=== PATIENT | female | born 1995 | race Caucasian/White ===

== ENCOUNTER 2021-02-01 16:53 | Inpatient (IN) | payer OTHER, SELFPAY ==
[2021-02-01] VITALS (8 sets, daily range): BP systolic 109–116; BP diastolic 61–69; PULSE 83–104; TEMP 36.8–37.3; BMI 25.4
[2021-02-01 17:31] LABS: Basophils Absolute Auto 0.1 K/mm3 (0.0-0.1); Basophils Percent Auto 0.5 % (0.2-1.2); Eosinophils Absolute Auto 0.2 K/mm3 (0-0.3); Eosinophils Percent Auto 1.1 % (0-4.4); Hematocrit 35.7 % (37.0-47.0); Hemoglobin 11.7 g/dL (12.0-15.0); Immature Granulocyte Absolute 0.33 K/mm3 (0.00-0.031); Immature Granulocyte Percent A 2.2 % (0-0.5); Lymphocytes Absolute Auto 2.97 K/mm3 (0.9-3.2); Lymphocytes Percent Auto 19.4 % (18.3-44.2); Mean Corpuscular HGB Conc 32.8 g/dl (32-36); Mean Corpuscular Hemoglobin 27.5 pg (26-34); Mean Platelet Volume 11.2 fl (7.4-10.4); Monocytes Absolute Auto 1.1 K/mm3 (0.1-0.6); Monocytes Percent Auto 7.4 % (2.6-8.5); Neutrophils Absolute Auto 10.7 K/mm3 (1.3-6.7); Neutrophils Percent Auto 69.4 % (45.5-73.1); Platelet Count Result 167 k/mm3 (150-375); Red Blood Count 4.25 M/mm3 (4.2-5.4); Red Cell Distribution Width 14.4 % (11.5-14.5); White Blood Count 15.3 K/mm3 (4.5-10.0)
[2021-02-01] MEDS: DINOPROSTONE 10 MG VAG INSERT VAGINAL (17:44)
--- NOTE | 2021-02-01 17:52 | LDADM ---
This patient, Jessica Galaviz, was admitted to Labor/Delivery/Recovery 107 on 02/01/21 at 16:53. Plans for labor, pain management and were discussed with patient. Patient/family oriented to hospital policies and general routines including ID bracelet, bed and alarms, visiting hours, pain management, procedures, bathroom and other care routines, personal items, smoking policy, room service/diet and guest tray routines, infant security routines, and visiting hours. Patient/Family are encouraged to report perceived risks to care and to ask questions if they do not understand what they are told or what they should do. See OBIX for further documentation.
[2021-02-01] MEDS: ZOLPIDEM TARTRATE (*CRX) 5 MG TABLET PO (23:24)
[2021-02-02] VITALS (73 sets, daily range): BP systolic 81–127; BP diastolic 48–95; PULSE 66–158; RESP 16–18; TEMP 36.2–36.8; O2SAT 97–100
[2021-02-02] MEDS: LACTATED RINGERS 1,000 ML 125 ML IV CONT ×2 (05:14→08:53)
[2021-02-02] MEDS: OXYTOCIN 30 UNITS/NS 500 ML 30 UNITS/500 ML BAG 6 UNITS IV CONT (05:15)
[2021-02-02 08:52] LABS: Rapid Plasma Reagin Non-Reactive (NonReactive)
--- NOTE | 2021-02-02 09:00 | WPDOBADMIT ---
Obstetrics - Admit Note Admission Note: record reviewed. Additions to the history and/or subsequent changes in the physical findings follow. 25 y/o G1 at 39 2/7 weeks gestation admitted to the hospital for induction of labor secondary to oligohydramnios. EFW was also 1st percentile 2 days ago. GBS neg. Cervidil overnight, has been withdrawn. Now comfortable with epidural. AVSS NST reactive TOCO: contractions every 2-5 min ABD soft, nontender, gravid, vertex EXT nontender Cervix 4/80/-2. AROM with clear fluid. A: IUP at term with oligohydramnios. P: Oxytocin. Anticipate .
--- NOTE | 2021-02-02 09:25 | WPDANESEPPF ---
Anes - Initial Pre Proc Eval Procedure: labor epidural Date/Time: 02/02/21 09:25 Surgeon: Kuldeep Isaacs MD Pre Op Diagnosis: labor pain Pre Op Diagnosis: iol Patient Data Age: 25 Gender: F Height: 1.65 m Weight: 69.5 kg Last Vital Signs Temp 36.8 C 02/01/21 23:30 Pulse 93 02/02/21 09:16 BP 109/80 02/02/21 09:16 Pulse Ox 100 02/02/21 09:24 Allergies Allergy/AdvReac Type Severity Reaction Status Date / Time No Known Allergies Allergy Verified 01/17/21 15:39 Home Medications Medication Instructions Recorded Confirmed Type prenat.vits,jovanni,keh-rhct-urnok 1 tablet PO HS 01/17/21 01/17/21 History [ #2] calcium carbonate [Tums] 200 mg PO QID PRN 02/01/21 02/01/21 History famotidine [Pepcid] 20 mg PO DAILY 02/01/21 02/01/21 History Laboratory Tests 02/01/21 02/01/21 02/01/21 17:25 17:25 17:25 WBC 15.3 K/mm3 H K/mm3 (4.5-10.0) RBC 4.25 M/mm3 M/mm3 (4.2-5.4) Hgb 11.7 g/dL L g/dL (12.0-15.0) Hct 35.7 % L % (37.0-47.0) MCV 84.0 fl fl (80-100) MCH 27.5 pg pg (26-34) MCHC 32.8 g/dl g/dl (32-36) RDW 14.4 % % (11.5-14.5) Plt Count 167 k/mm3 k/mm3 (150-375) MPV 11.2 fl H fl (7.4-10.4) Immature Gran % (Auto) 2.2 % H % (0-0.5) Neut % (Auto) 69.4 % % (45.5-73.1) Lymph % (Auto) 19.4 % % (18.3-44.2) [place] % (Auto) 7.4 % % (2.6-8.5) Eos % (Auto) 1.1 % % (0-4.4) Baso % (Auto) 0.5 % % (0.2-1.2) Lymph # (Auto) 2.97 K/mm3 K/mm3 (0.9-3.2) [place] # (Auto) 1.1 K/mm3 H K/mm3 (0.1-0.6) Eos # (Auto) 0.2 K/mm3 K/mm3 (0-0.3) Baso # (Auto) 0.1 K/mm3 K/mm3 (0.0-0.1) Abs Immat Gran (auto) 0.33 K/mm3 H K/mm3 (0.00-0.031) Absolute Neuts (auto) 10.7 K/mm3 H K/mm3 (1.3-6.7) Absolute Nucleated RBC 0.0 K/mm3 K/mm3 (0.0-0.012) Nucleated RBC % 0.0 % % (0.0-0.2) RPR Non-reactive (NonReactive) Blood Type B Positive Antibody Screen Negative Patient hx anesthesia problems: none Family hx anesthesia problems: none [facility] Past Medical History Medical History (Updated 02/02/21 @ 09:26 by Unruly Mendez DO) Anxiety Depression Scoliosis Family History Family History (Updated 01/17/21 @ 15:44 by Jose Navarro RN) Grandparent Diabetes mellitus Bladder cancer Sibling Scoliosis Bipolar 2 disorder Hypothyroidism Mother Mental disorder Father High cholesterol Social History Social History Smoking status: Never smoker Substance use: never Spiritual care concerns: No Anes - Eval Final PreProcedure Day of Procedure 02/02/21 09:25 Patient weight: overweight Heart: regular rate and rhythm Lungs: clear to auscultation and normal air movement Airway: Mallampati scale class II Neurological: alert and oriented Last oral intake: >/= 8 hours ASA classification: II Emergent: no Anesthetic plan: proceed Anesthesia type and monitoring: regional epidural and standard monitoring Informed Consent: The patient's anesthetic plan and its attendant risks and benefits were discussed with the patient/family/POA. Questions were solicited and answers provided to the satisfaction of the patient/family/POA.
[2021-02-02] MEDS: OXYTOCIN 30 UNITS/NS 500 ML 30 UNITS/500 ML BAG 125 UNITS IV CONT (12:12)
--- NOTE | 2021-02-02 13:04 | PM.OBPRVD ---
OB - Delivery Note Procedure Delivery date: 02/02/21 Procedure: Induction of labor with Induction method: AROM and per pitocin protocol Delivery monitor: external FHT, external uterine and internal uterine Route of delivery: Laceration Description: Perineal - 2nd Degree Delivery repair: vicryl (3-0) Specimen: Yes (cord blood, placenta) Quantitative Blood Loss (ml): 140 Anesthesia type: Epidural Disposition: PACU Complications: None Narrative: 25 y/o G1 at 39 2/7 weeks gestation who presented to the hospital for induction of labor. Cervidil was placed overnight, then withdrawn the following morning. Oxytocin was administered intravenously. Amniotomy was performed with return of clear fluid. She received an epidural for pain control. Her labor progressed and her cervix dilated completely. She pushed with good effort and delivered the infant's head to the perineum, followed by the body. The nose and mouth were bulb suctioned. After a delay, the cord was clamped and cut. The was handed off the field. Cord blood was collected. The placenta delivered spontaneously and was grossly normal in appearance. The usual 3 vessel cord was noted. A second degree midline perineal laceration was sustained. This was reapproximated using 3 0 Vicryl in the usual layered fashion. Excellent hemostasis resulted as did excellent reapproximation of the normal anatomy. Needle and instrument counts were correct. The patient was taken to recovery room in stable condition. The infant went to the nursery in stable condition. I was present and scrubbed for the entire delivery. Baby Date of : 02/02/21 Time of : 11:46 Weeks of gestation at delivery: 39 Infant gender: Male Weight (pounds): 6 Weight (ounces): 3 presentation: vertex position: Left Occiput Anterior Placenta delivery description: Spontaneous and Normal Configuration cord vessel description: 3 Vessels and Delayed Cord Clamping score one minute: 9 score five minutes: 9
[2021-02-02] MEDS: WITCH HAZEL 40 PADS 1 PAD TOPICAL (14:40)
[2021-02-02] MEDS: BENZOCAINE 20% AER SPR (*SP) 56 GM CAN 1 SPRAY TOPICAL (14:40)
[2021-02-02] MEDS: IBUPROFEN 600 MG TABLET PO ×2 (14:40→20:04)
--- NOTE | 2021-02-02 15:50 | PC.NURSE ---
Mother called out for assist with feeding, reporting infant was eager first feeding and now sleepy. Assured parents this is normal. Demonstrated stimulation techniques to wake infant for feeding, feeding cues noted. Infant is able to freely thrust tongue past gum ridge and flange both lips. Skin is intact on both nipples, no redness and bruising noted. Reviewed feeding cues, frequencies, duration of feedings, feeding elimination flow sheet, and signs of adequate intake. Assisted with infant to breast. Reviewed positioning/alignment in cross cradle, holding breast in ?U? hold and guided asymmetrical latch on. Reviewed rational for each. able to latch correctly within a few attempts. Infant held nipple in his mouth with some tongue thrusting. Several attempts made. Suggeted mother skin to skin for 15-20 minutes and call out for assist.
[2021-02-02] MEDS: ACETAMINOPHEN 325 MG TABLET 650 MG PO (23:15)
[2021-02-03] MEDS: IBUPROFEN 600 MG TABLET PO ×3 (03:32→21:18)
[2021-02-03 03:40] VITALS: BP 108/62; PULSE 72; RESP 16; TEMP 36.3; O2SAT 97
[2021-02-03 04:44] LABS: Hematocrit 31.8 % (37.0-47.0); Hemoglobin 10.1 g/dL (12.0-15.0)
[2021-02-03] MEDS: ACETAMINOPHEN 325 MG TABLET 650 MG PO ×2 (06:51→21:18)
[2021-02-03] MEDS: MULTIVIT/MIN/PREN/FOL AC/IRON TABLET 1 TAB PO (06:51)
[2021-02-03] MEDS: DOCUSATE SODIUM 100 MG CAPSULE PO (06:51)
[2021-02-03 07:00] VITALS: BP 114/70; PULSE 70; PULSE 72; RESP 14; RESP 16; TEMP 36.6; O2SAT 100; O2SAT 97
--- NOTE | 2021-02-03 09:00 | WPDANLDPN2 ---
Anes-Prog Note L&D Date/Time: 02/03/21 09:00 Comfortable throughout: labor and delivery Neuraxial method: epidural Epidural/Spinal procedure site: clean & non-tender Neuro status: Neuro function grossly intact. Cardiovascular status: normal Respiratory status: normal Airway patency: baseline Mental status: baseline Post-Op hydration status: normal Vital Signs: Last Vital Signs Temp 97.9 F 02/03/21 07:00 Pulse 70 02/03/21 07:00 Resp 14 02/03/21 07:00 BP 114/70 02/03/21 07:00 Pulse Ox 100 02/03/21 07:00 Pain score (VAS): 0 Post-procedural complaints: none Patient feedback: Patient satisfied with anesthetic care.
--- NOTE | 2021-02-03 10:26 | PM.OBPNVD ---
OB - PN: Subj Subjective Date/time seen: 02/03/21 10:26 Narrative: Pain OK. Would like circumcision for son. OB - PN: Obj Data Labs CBC & Chem 7: 02/03/21 03:38 Labs: Laboratory Results - last 24 hr 02/03/21 03:38 Hgb 10.1 L Hct 31.8 L OB - PN A/P Plan Comments: A: PPD#1, doing well. P: Routine care. Reviewed circ. Exam Psych: Other: AVSS ABD soft, nontender, fundus firm EXT nontender
--- NOTE | 2021-02-03 10:27 | PM.OBDSVD ---
DS: Admitting Diagnosis Discharge Date 02/04/21 Admitting Diagnosis IUP at 39 weeks Oligohydramnios DS: Discharge Diagnosis Discharge Diagnosis (1) (normal spontaneous vaginal delivery): Code(s): O80 - Encounter for full-term uncomplicated delivery Status: Acute OB - DS: Summary OB Procedures : None OB Procedures Intrapartum: Spontaneous Vag Delivery OB Procedures: : None DS: Data Data Completed and Pending Labs on day of discharge: Labs from last 24 hours 02/03/21 03:38 Hgb 10.1 L Hct 31.8 L Discharge Plan Discharge Attending physician on discharge: Kuldeep Isaacs Discharging Clinician: Kuldeep Isaacs Patient Disposition: Home, Self-Care Activity: pelvic rest Diet: regular Discharge Instructions: Call or return if temperature above 100.4? F, increased abdominal pain, increased vaginal bleeding or any new problems. Stand Alone Forms: General Discharge Information Follow-up/Referrals: Kuldeep Isaacs MD [Physician] - 6 Weeks Discharge Medications: New ibuprofen 600 mg tablet 600 mg PO Q6H PRN (Reason: cramps) Qty: 30 RF: 0 methylprednisolone [Medrol (Jordan)] 4 mg tablets,dose pack See Rx Instructions .ROUTE .COMPLEX Qty: 21 RF: 0 No Action #2 Tablet 1 tablet PO HS RF: 0 famotidine [Pepcid] 20 mg Tablet 20 mg PO DAILY RF: 0 calcium carbonate [Tums] 200 mg calcium (500 mg) Tablet,Chewable 200 mg PO QID PRN (Reason: Heartburn) RF: 0 Date of admission: 02/01/21 16:53 Primary Care Provider: Whitney,Linda Weller Admitting Provider: Kuldeep Isaacs Attending physician on admission: Kuldeep Isaacs Condition: Stable
[2021-02-03] MEDS: TRIAMCINOLONE ACET 0.1% CREAM 15 GM TUBE 1 APPLIC TOPICAL (12:17)
[2021-02-03 18:45] VITALS: BP 125/75; PULSE 70; RESP 18; TEMP 36.5
[2021-02-03] MEDS: LANOLIN (LANSINOH) 7.5 GM CREAM 1 APPLIC TOPICAL (19:07)
[2021-02-04] MEDS: MULTIVIT/MIN/PREN/FOL AC/IRON TABLET 1 TAB PO (07:48)
[2021-02-04] MEDS: IBUPROFEN 600 MG TABLET PO (07:48)
[2021-02-04] MEDS: DOCUSATE SODIUM 100 MG CAPSULE PO (07:48)
[2021-02-04 07:50] VITALS: BP 116/73; PULSE 74; RESP 18; TEMP 36.8
--- NOTE | 2021-02-04 09:04 | PM.OBPNVD ---
OB - PN: Subj Subjective Date/time seen: 02/04/21 09:04 Narrative: Pain OK. Rash on buttocks, dorsal hands, arms is itchy and seems worse despite TAC 0.1% cream. Would like to go home. OB - PN: Obj Data Labs CBC & Chem 7: 02/03/21 03:38 OB - PN A/P Plan Comments: A: PPD#2, doing well. Dermatitis. P: Medrol dosepack. Home to f/u 6 weeks. Exam Psych: Other: AVSS ABD soft, nontender, fundus firm EXT nontender
--- NOTE | 2021-02-04 11:35 | PC.NURSE ---
Patient viewed the discharge video Mother & Baby Care, The First Two Weeks . Patient was given the opportunity and encouraged to ask questions. Patient verbalized understanding of information shared and has been given the mother/baby guide for home reference.
[2021-02-07 10:14] VITALS: BP 96/60; PULSE 105; RESP 20; TEMP 36.9; O2SAT 100
== END 2021-02-04 14:16 | disposition home or self-care (01) | DRG 807 ==
LOC: ANHLDR 16:58 → ANHOB2 02-02 15:35
PROVIDERS: Admitting Provider Obstetrics & Gynecology; PCP Physician Assistant; Visit Provider Obstetrics & Gynecology
DX: O41.03X0 Oligohydramnios, third trimester, not applicable or unspecified (principal); Z37.0 Single live birth; Z3A.39 39 weeks gestation of pregnancy; O62.3 Precipitate labor; O70.1 Second degree perineal laceration during delivery; O99.344 Other mental disorders complicating childbirth; F41.9 Anxiety disorder, unspecified; F32.9 Major depressive disorder, single episode, unspecified; O99.892 Other specified diseases and conditions complicating childbirth; M41.9 Scoliosis, unspecified; O99.73 Diseases of the skin and subcutaneous tissue complicating the puerperium; R21 Rash and other nonspecific skin eruption
CPT/HCPCS: 36415; 85014; 85018; 85025; 86592; 86850; 86900; 86901; A9270; J2590; J2795; J7120

== ENCOUNTER 2023-08-19 11:03 | Outpatient (RCR) | payer OTHER, SELFPAY ==
[2023-08-19 12:15] VITALS: BP 113/62; PULSE 76
== END 2023-11-17 23:59 | disposition home or self-care (01) ==
LOC: ANHOBOP 11:03
PROVIDERS: PCP Physician Assistant; Visit Provider Obstetrics & Gynecology
DX: O36.8130 Decreased fetal movements, third trimester, not applicable or unspecified (principal); Z3A.39 39 weeks gestation of pregnancy
CPT/HCPCS: 59025

== ENCOUNTER 2023-08-24 03:20 | Inpatient (IN) | payer OTHER, SELFPAY ==
[2023-08-24] VITALS (94 sets, daily range): BP systolic 83–189; BP diastolic 41–164; PULSE 72–144; RESP 16–18; TEMP 36.9–37.4; O2SAT 93–100; BMI 26.6
[2023-08-24] MEDS: LACTATED RINGERS 1,000 ML 125 ML IV CONT ×3 (04:00→05:57)
[2023-08-24 04:07] LABS: Basophils Absolute Auto 0.1 K/mm3 (0.0-0.1); Basophils Percent Auto 0.4 % (0.2-1.2); Eosinophils Absolute Auto 0.3 K/mm3 (0-0.3); Hematocrit 31.9 % (37.0-47.0); Hemoglobin 9.9 g/dL (12.0-15.0); Immature Granulocyte Absolute 0.17 K/mm3 (0.00-0.031); Immature Granulocyte Percent A 1.3 % (0-0.5); Lymphocytes Absolute Auto 3.03 K/mm3 (0.9-3.2); Lymphocytes Percent Auto 23.5 % (18.3-44.2); Mean Corpuscular Hemoglobin 23.7 pg (26-34); Mean Corpuscular Volume 76.3 fl (80-100); Mean Platelet Volume 10.7 fl (7.4-10.4); Monocytes Absolute Auto 1.2 K/mm3 (0.1-0.6); Monocytes Percent Auto 9.2 % (2.6-8.5); Neutrophils Absolute Auto 8.2 K/mm3 (1.3-6.7); Neutrophils Percent Auto 63.6 % (45.5-73.1); Platelet Count Result 220 k/mm3 (150-375); Red Blood Count 4.18 M/mm3 (4.2-5.4); Red Cell Distribution Width 15.8 % (11.5-14.5); White Blood Count 12.9 K/mm3 (4.5-10.0)
--- NOTE | 2023-08-24 04:27 | P.PNAN_ITS ---
Anes - Eval Pre Procedure Procedure: labor epidural Date/Time: 08/24/23 04:27 Surgeon: davey Preop Diagnosis: pain during labor Pre Op Diagnosis: Labor Patient Data Age: 28 Gender: F Height: Weight: Last Vital Signs Pulse 108 H 08/24/23 04:15 BP 133/84 08/24/23 04:15 Pulse Ox 100 08/24/23 04:25 Allergies Allergy/AdvReac Type Severity Reaction Status Date / Time No Known Allergies Allergy Verified 01/17/21 15:39 Home Medications Medication Instructions Recorded Confirmed Type prenat.vits,jovanni,vtc-fjok-qoukm 1 tablet PO HS 01/17/21 01/17/21 History cholecalciferol (vitamin D3) 25 1 spray sublingual DAILY 08/11/23 08/11/23 History mcg/spray(1,000 unit/spray) subling spray, susp cyanocobalamin (vitamin B-12) 08/11/23 History 1,000 mcg/mL oral drops (Vitamin B-12) Laboratory Tests 08/24/23 04:02 WBC 12.9 H K/mm3 (4.5-10.0) RBC 4.18 L M/mm3 (4.2-5.4) Hgb 9.9 L g/dL (12.0-15.0) Hct 31.9 L % (37.0-47.0) MCV 76.3 L fl (80-100) MCH 23.7 L pg (26-34) MCHC 31.0 L g/dl (32-36) RDW 15.8 H % (11.5-14.5) Plt Count 220 k/mm3 (150-375) MPV 10.7 H fl (7.4-10.4) Immature Gran % (Auto) 1.3 H % (0-0.5) Neut % (Auto) 63.6 % (45.5-73.1) Lymph % (Auto) 23.5 % (18.3-44.2) [place] % (Auto) 9.2 H % (2.6-8.5) Eos % (Auto) 2.0 % (0-4.4) Baso % (Auto) 0.4 % (0.2-1.2) Lymph # (Auto) 3.03 K/mm3 (0.9-3.2) [place] # (Auto) 1.2 H K/mm3 (0.1-0.6) Eos # (Auto) 0.3 K/mm3 (0-0.3) Baso # (Auto) 0.1 K/mm3 (0.0-0.1) Abs Immat Gran (auto) 0.17 H K/mm3 (0.00-0.031) Absolute Neuts (auto) 8.2 H K/mm3 (1.3-6.7) Absolute Nucleated RBC 0.000 K/mm3 (0.0-0.012) Nucleated RBC % 0.0 % (0.0-0.2) RPR Pending Patient hx anesthesia problems: none Family hx anesthesia problems: none Results Review: All pre-operative results and documents have been reviewed as part of the pre- operative evaluation. [facility] Past Medical History Medical History (Updated 02/03/21 @ 10:27 by Kuldeep Isaacs MD) Anxiety Depression Scoliosis Family History Family History Grandparent Diabetes mellitus Bladder cancer Sibling Scoliosis Bipolar 2 disorder Hypothyroidism Mother Mental disorder Father High cholesterol Social History Social History Smoking status: Never smoker Substance use: never Spiritual care concerns: No Exam Day of Procedure 08/24/23 04:27
--- NOTE | 2023-08-24 04:53 | LDADM ---
This patient, Jessica Galaviz, was admitted to Labor/Delivery/Recovery 106 on 08/24/23 at 03:20. Plans for labor, pain management and were discussed with patient. Patient/family oriented to hospital policies and general routines including ID bracelet, bed and alarms, visiting hours, pain management, procedures, bathroom and other care routines, personal items, smoking policy, room service/diet and guest tray routines, infant security routines, and visiting hours. Patient/Family are encouraged to report perceived risks to care and to ask questions if they do not understand what they are told or what they should do. See OBIX for further documentation.
--- NOTE | 2023-08-24 07:23 | PM.IMHP ---
H&P: HPI History of Present Illness Date/Time: 08/24/23 07:23 Chief Complaint: Labor at term Narrative: 28-year-old 2 para 1 whose last menstrual period was 11/19/2022, EDC is 08/26/2023, confirmed by her early ultrasound presents at 39 weeks gestation in active labor. This has been uncomplicated. She did have a history of overall hydramnios with her last . She is negative for group B strep PMFSH Past Medical History Medical History Anxiety Depression Scoliosis Family History Family History Grandparent Diabetes mellitus Bladder cancer Sibling Scoliosis Bipolar 2 disorder Hypothyroidism Mother Mental disorder Father High cholesterol Social History Social History Smoking status: Never smoker Substance use: never Do You Feel Safe in your Home?: Yes Lack of Transportation: No Lack of Food: Never True Current Housing: I Have Housing Concerned About Future Housing: No Difficulty Paying Gas/Electric Bills: No Difficulty Paying for Meds: No Currently Unemployed: No Education: Decline to Answer Difficulty w/ Childcare or Family Care: No Spiritual care concerns: No Meds Home Medications and Allergies Home Medications Medication Instructions Recorded Confirmed Type prenat.vits,jovanni,aua-czev-koxwu 1 tablet PO HS 01/17/21 08/24/23 History cholecalciferol (vitamin D3) 25 1 spray sublingual DAILY 08/11/23 08/11/23 History mcg/spray(1,000 unit/spray) subling spray, susp cyanocobalamin (vitamin B-12) 08/11/23 History 1,000 mcg/mL oral drops (Vitamin B-12) Allergies Allergy/AdvReac Type Severity Reaction Status Date / Time No Known Allergies Allergy Verified 08/24/23 06:58 Vital Signs Vital Signs - 24 hr 08/24/23 04:14 08/24/23 04:15 08/24/23 04:20 Temperature Pulse Rate 89 108 H Blood Pressure 127/78 133/84 Pulse Oximetry 99 Oxygen Delivery 08/24/23 04:25 08/24/23 04:28 08/24/23 04:30 Temperature Pulse Rate 126 H Blood Pressure 143/81 H Pulse Oximetry 100 98 Oxygen Delivery 08/24/23 04:31 08/24/23 04:33 08/24/23 04:36 Temperature Pulse Rate 125 H 117 H 107 H Blood Pressure 148/90 H 147/67 H 123/60 Pulse Oximetry 98 Oxygen Delivery 08/24/23 04:38 08/24/23 04:40 08/24/23 04:40 Temperature Pulse Rate 112 H Blood Pressure 118/73 Pulse Oximetry 95 94 93 Oxygen Delivery 08/24/23 04:40 08/24/23 04:40 08/24/23 04:44 Temperature Pulse Rate 95 91 Blood Pressure 129/65 136/69 Pulse Oximetry Oxygen Delivery 08/24/23 04:45 08/24/23 04:48 08/24/23 04:50 Temperature Pulse Rate 96 102 H 94 Blood Pressure 131/80 120/62 127/65 Pulse Oximetry 98 98 Oxygen Delivery 08/24/23 04:53 08/24/23 04:55 08/24/23 04:58 Temperature Pulse Rate 102 H 112 H 94 Blood Pressure 126/70 133/70 118/70 Pulse Oximetry 99 Oxygen Delivery 08/24/23 05:00 08/24/23 05:03 08/24/23 05:05 Temperature Pulse Rate 105 H 118 H Blood Pressure 137/58 L 120/68 Pulse Oximetry 99 99 Oxygen Delivery 08/24/23 05:06 08/24/23 05:08 08/24/23 05:10 Temperature Pulse Rate 121 H 105 H Blood Pressure 140/56 L 134/66 Pulse Oximetry 99 Oxygen Delivery 08/24/23 05:11 08/24/23 05:13 08/24/23 05:15 Temperature Pulse Rate 95 94 105 H Blood Pressure 130/65 103/79 130/71 Pulse Oximetry 100 Oxygen Delivery 08/24/23 05:18 08/24/23 05:20 08/24/23 05:21 Temperature Pulse Rate 99 109 H Blood Pressure 133/66 133/56 L Pulse Oximetry 98 Oxygen Delivery 08/24/23 05:23 08/24/23 05:25 08/24/23 05:30 Temperature Pulse Rate 100 105 H Blood Pressure 125/71 130/115 H Pulse Oximetry 99 98 Oxygen Delivery 08/24/23 05:31 08/24/23 05:32 0
[2023-08-24] MEDS: OXYTOCIN 30 UNITS/NS 500 ML 30 UNITS/500 ML BAG 999 UNITS IV CONT (08:30)
--- NOTE | 2023-08-24 08:41 | PM.OBPRVD ---
OB - Vaginal Delivery Note Procedure Delivery date: 08/24/23 Delivery monitor: External FHT and External Uterine Route of delivery: Episiotomy description: None Laceration Description: Perineal - 1st Degree Delivery repair: vicryl Specimen: No Quantitative Blood Loss (ml): 61 Anesthesia type: Epidural Disposition: Floor Complications: No immediate complications Baby Date of : 08/24/23 Time of : 08:28 Weeks of gestation at delivery: 39 gender: Male presentation: vertex position: Right Occiput Anterior Placenta delivery description: Spontaneous Cord Vessel Description: 3 Vessels score one minute: 9 score five minutes: 9
[2023-08-24] MEDS: OXYTOCIN 30 UNITS/NS 500 ML 30 UNITS/500 ML BAG 125 UNITS IV CONT (09:05)
--- NOTE | 2023-08-24 11:15 | OBPPTRN ---
Patient transferred to post room #284 via wheelchair. Support person present. Oriented to unit, room, information board, rooming in, admission packet and security measures. Patient verbalizes understanding.
[2023-08-24] MEDS: IBUPROFEN 600 MG TABLET PO ×2 (14:20→20:02)
[2023-08-24] MEDS: DOCUSATE SODIUM 100 MG CAPSULE PO (16:32)
[2023-08-24] MEDS: CEPHALEXIN 500 MG CAPSULE PO (16:32)
[2023-08-24] MEDS: POLYSACCHARIDE IRON COMPLEX 150 MG CAPSULE PO (16:32)
[2023-08-25 05:14] LABS: Hematocrit 29.1 % (37.0-47.0); Hemoglobin 8.8 g/dL (12.0-15.0)
--- NOTE | 2023-08-25 07:23 | WPDANLDPN2 ---
Anes-Prog Note L&D Date/Time: 08/25/23 07:23 Comfortable throughout: labor and delivery Neuraxial method: epidural Epidural/Spinal procedure site: clean & non-tender Neuro status: Neuro function grossly intact. Cardiovascular status: normal Respiratory status: normal Airway patency: baseline Mental status: baseline Post-Op hydration status: normal Vital Signs: Last Vital Signs Temp 99.3 F 08/24/23 20:00 Pulse 74 08/24/23 20:00 Resp 16 08/24/23 20:00 BP 113/74 08/24/23 20:00 Pulse Ox 97 08/24/23 20:00 O2 Del Method Room Air 08/24/23 11:30 Pain score (VAS): 0/10 I/O: Intake & Output 08/24/23 08/24/23 08/25/23 15:59 23:59 07:59 Intake Total 540 Output Total 61 Balance 479 Post-procedural complaints: none Patient feedback: Patient satisfied with anesthetic care.
[2023-08-25 07:40] VITALS: BP 111/74; PULSE 85; RESP 16; TEMP 37.6; O2SAT 98
[2023-08-25] MEDS: DOCUSATE SODIUM 100 MG CAPSULE PO (08:23)
[2023-08-25] MEDS: POLYSACCHARIDE IRON COMPLEX 150 MG CAPSULE PO (08:23)
[2023-08-25] MEDS: IBUPROFEN 600 MG TABLET PO (08:24)
[2023-08-25] MEDS: CEPHALEXIN 500 MG CAPSULE PO (08:24)
[2023-08-25] MEDS: LANOLIN (LANSINOH) 7.5 GM CREAM 1 APPLIC TOPICAL (08:24)
[2023-08-25] MEDS: MULTIVIT/MIN/PREN/FOL AC/IRON TABLET 1 TAB PO (08:24)
--- NOTE | 2023-08-25 10:49 | PC.NURSE ---
0945 Introductions were made, then consulted with patient to assess needs related to . Mother led the conversation with her?plans to feed?her and the?experience so far. Encouraged understanding of the benefits of skin to skin (demonstrating unwrapping infant and placing upright on her chest), stimulating with massage touch, changing positions to encourage wakefulness, how to watch for early feeding cues, responsive feeding, feeding on demand (aiming for 8-12 times in 24 hours, about every 2-3 hours), milk production, building/maintaining a milk supply, duration of feeding, signs of adequate intake/output and how to record on the feeding sheet. Mother works well with her with encouragement and education. Reviewed positioning and ear, shoulder, hip alignment, supporting the breast to facilitate a deep latch, asymmetrical latch (off-center), leading with the chin with a big, open, wide gape and body close to mother. Infant latched optimally to the right breast in cross cradle position. Education given to the mother of how to visualize the suckling (with good rocking jaw motion), swallows (dropping of the lower jaw) and how to listen for drinking at the breast (the ka sound). Infant was able to maintain latch without pain to mother protecting the nipple with optimal positioning and latching, however baby is very sleepy at this time. Will attempt to feed baby in one hour. Reviewed comfort measures of healing with a warm, wet washcloth to rinse breast, then leave open to air-dry, good handwashing when or touching the breast/nipples to prevent infection. Mother voiced understanding of skin to skin, stimulating with massage touch, responsive feedings, hand expressed colostrum, talking to to encourage if it has been 2 -2.5 hours since the start of the last , to call if does not latch, or if there is discomfort with . Resources used for education were facilitated with the mom and baby guide, Inpatient resources provided with business card, feeding sheet, name written on the communication board, and the mom/baby guide. Parents voiced understanding of information, demonstrated learning and will call if there is a request for assistance. Reported to the Primary RN.
--- NOTE | 2023-08-25 11:51 | PM.OBPNVD ---
OB - PN: Subj Subjective Date/time seen: 08/25/23 11:51 Narrative: Pain OK. Desires circumcision for son. Would like to go home. OB - PN: Obj Data Labs 08/25/23 05:00 Labs: Laboratory Results - last 24 hr 08/25/23 05:00 Hgb 8.8 L Hct 29.1 L OB - PN A/P Plan Comments: A: PPD#1, doing well. P: Reviewed circ. Home to f/u 6 weeks. Exam Psych: Other: AVSS ABD soft, nontender, fundus firm EXT nontender
--- NOTE | 2023-08-25 11:53 | P.DS_ITS ---
DS: Admitting Diagnosis Discharge Date 08/25/23 Admitting Diagnosis IUP at term Labor DS: Discharge Diagnosis Discharge Diagnosis (1) (normal spontaneous vaginal delivery): Code(s): O80 - Encounter for full-term uncomplicated delivery Status: Acute OB - DS: Summary OB Procedures : None OB Procedures Intrapartum: Spontaneous Vag Delivery OB Procedures: : None Peripartum Data Laceration Description: Perineal - 1st Degree Episiotomy description: None Time Spent with Patient Time attestation: Total time spent providing and/or coordinating discharge services: DS: Data Data Completed and Pending Labs on day of discharge: Labs from last 24 hours 08/25/23 05:00 Hgb 8.8 L Hct 29.1 L Discharge Plan Discharge Attending physician on discharge: Kuldeep Isaacs Discharging Clinician: Kuldeep Isaacs Patient Disposition: Home, Self-Care Activity: pelvic rest Diet: regular Discharge Instructions: Call or return if temperature above 100.4? F, increased abdominal pain, incre ased vaginal bleeding or any new problems. Stand Alone Forms: General Discharge Information Follow-up/Referrals: Kuldeep Isaacs MD [Physician] - 6 Weeks Discharge Medications: New ibuprofen 600 mg tablet 600 mg PO Q6H PRN (Reason: cramps) Qty: 30 0RF Continued cholecalciferol (vitamin D3) 25 mcg/spray 1,000unit/spray [place],Suspension 1 spray SUBLINGUAL DAILY Vitamin B-12 1,000 mcg/mL Drops Rx Instructions: Pt states does 5 sprays daily prenat.vits,jovanni,yxt-fana-keysm Tablet 1 tablet PO HS Date of admission: 08/24/23 03:20 Primary Care Provider: WhitneyLinda Admitting Provider: Kuldeep Isaacs Attending physician on admission: Kuldeep Isaacs Condition: Stable
--- NOTE | 2023-08-25 12:08 | PC.NURSE ---
1145 Mother works well with her infant. Reviewed positioning and ear, shoulder, hip alignment, supporting the breast to facilitate a deep latch, asymmetrical latch (off-center), leading with the chin with a big, open, wide gape and body close to mother. Infant latched optimally to the both breasts in cross cradle position. Infant was able to maintain latch without pain to mother protecting the nipple with optimal positioning and latching. Reviewed comfort measures of healing with a warm, wet washcloth to rinse breast, then leave open to air-dry, good handwashing when or touching the breast/nipples to prevent infection. Parents voiced understanding of information and will call if there is a request for assistance. Reported to the Primary RN.
--- NOTE | 2023-08-25 13:40 | PC.NURSE ---
Patient instructed on viewing the discharge video Mother & Baby Care, The First Two Weeks . Patient was given the opportunity and encouraged to ask questions. Patient verbalized understanding of information shared and has been given the mother/baby guide for home reference.
[2023-08-25 15:10] LABS: Rapid Plasma Reagin Non-Reactive (NonReactive)
[2023-08-26 15:55] VITALS: BP 123/69; PULSE 86; RESP 18; TEMP 36.7; O2SAT 100
== END 2023-08-25 16:45 | disposition home or self-care (01) | DRG 807 ==
LOC: ANHLDR 05:54 → ANHOB2 13:28
PROVIDERS: Admitting Provider Obstetrics & Gynecology; PCP Physician Assistant; Visit Provider Obstetrics & Gynecology
DX: O70.0 First degree perineal laceration during delivery (principal); Z37.0 Single live birth; Z3A.39 39 weeks gestation of pregnancy
CPT/HCPCS: 36415; 85014; 85018; 85025; 86592; 86850; 86900; 86901; A9270; J2590; J2795; J7120

== ENCOUNTER 2025-05-10 16:55 | Emergency (ER) | payer OTHER, SELFPAY ==
--- NOTE | ~2025-05-10 | XR_ITS ---
XR foot LT min 3V 05/10/2025 20:21 INDICATION: Foreign body PROCEDURE: 3 views left foot COMPARISON: No prior studies for comparison. FINDINGS: Fracture, dislocation or subluxation is not identified. The soft tissues appear within normal limits. No foreign bodies are identified. IMPRESSION: 1: NO ACUTE BONE OR JOINT ABNORMALITY IDENTIFIED. Reviewed, dictated and finalized at location O. INE FURNACE LOADER
--- OUTSIDE RECORDS SUMMARY | 2025-05-10 16:57 | XMS_ITS | Clinical Summary ---
Author Organization [facility] Address [address], [address] [address] Phone Care Team Providers Care Yard Engineer Name Role Phone Linda Olson Primary Care Provider + Provider, None Unavailable Unavailable Allergies No known active allergies Medications No known medications Active Problems No known active problems Immunizations Immunization Administration Dates Next Due DTAP VACCINE 06/05/2000 DTAP/HIB COMBINED VACCINE 07/26/1996,1995, 1995 DTP-Hib 1995 Hepatitis B Vaccine, Pediatric/adolescent 1995,1995,1995 Inactivated Polio Vaccine 06/05/2000 MMR Vaccine 06/05/2000,04/26/1996 OPV 1995,1995,1995 TDAP Vaccine 02/19/2010 Family History Medical History Relation Name Comments Depression Sister 1 Thyroid Disease Sister 2 Relation Name Status Comments Father Alive Mother Alive Sister 1 Alive Sister 2 Alive Social History Tobacco Use Types Packs/Day Years Used Date Smoking Tobacco: Never Smokeless Tobacco: Never Tobacco Cessation:Counseling Given: No Alcohol Use Standard Drinks/Week Comments Not Currently 0 (1 standard drink = 0.6 oz pur e alcohol) PHQ-2 Answer Date Recorded Total Score - Questions 1-9 0 10/18 Education Answer Date Recorded What is the highest level of school you have completed or the highest degree you have received? 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 Oxygen Saturation 100% 11/13/2022 2:16 PM CDT Inhaled Oxygen Concentration - - Weight 56.7 kg (125 lb) 11/13/2022 2:16 PM CDT Height 165.1 cm (5' 5) 11/13/2022 2:16 PM CDT Body Mass Index 20.8 11/13/2022 2:16 PM CDT Plan of Treatment Health Maintenance Due Date Last Done Comments Hepatitis C Virus (HCV) Screening 1995 Varicella Immunization (1 of 2 - 13+ 2-dose series) 2008 DTaP/Tdap/Td Immunization (7 - Td or Tdap) 02/20/2020 02/19/2010, 06/05/2000, 07/26/1996, Additional history exists Td Immunization Every 10 Years (Adults With 1 Tdap) 02/20/2020 02/19/2010 Pap Smear 10/03/2024 10/03/2021 Influenza Immunization (#1) 2025 SARS-COV-2 Immunization ( season) 2025 Cervical Cancer Screening (CCS) 2025 HPV/Cotest 2025 Respiratory Syncytial Virus (RSV) Immunization (Adult) (1 - 1-dose 75+ series) 2070 Hepatitis B Immunization Completed 996, 1995, 1995 Human Papillomavirus (HPV) Immunization (No Doses Required) Completed Meningococcal Immunization (ACWY) Aged Out No longer eligible based on patient's age to complete this topic Pneumococcal Immunization Combined Aged Out No longer eligible based on patient's age to complete this topic Rotavirus Immunization Aged Out No lo nger eligible based on patient's age to complete this topic Insurance [facility] Care Teams Yard Engineer Relationship Specialty Start Date End Date Linda Olson PAC [address] [facility] [address] PCP - General Physician Armored Car Driver 11/08/19 Provider, None [place] 11/08/19
--- OUTSIDE RECORDS SUMMARY | 2025-05-10 16:57 | XMS_ITS | Clinical Summary ---
Author Organization [facility] [address] Address [address] [place] [address] Phone Care Team Providers Care Charge Master Analyst Name Role Phone Linda Olson Primary Care Provider [phone] Allergies No known active allergies Medications biotin 1 mg capsule Take by mouth. Active norethindrone-ethi n estradiol (NECON , 28,) 1-35 mg-mcg per tabletIndications: Oral contraceptive pill surveillance Take 1 tablet by mouth daily 28 tablet 14 02/15/201 9 Active Active Problems Problem Noted Date Diagnosed Date Cyst of ovary 02/24/2013 Overview (08/23/2016): Ovarian cyst Medical examinations/reports status 04/15/2012 Overview (08/21/2016): Health care maintenance Immunizations Immunization Administration Dates Next Due DTP / HiB 1995 DTaP 06/05/2000 DTaP / HiB 07/26/1996,1995,1995 Hep B, Adolescent or Pediatric 1995,1995,1995 IPV 06/05/2000 MMR 06/05/2000,04/26/1996 OPV 1995,1995,1995 Tdap 02/19/2010 Surgical History Surgery Date Site/Laterality Comments OTHER SURGICAL HISTORY 7-4 product normal : Vaginal delivery OTHER SURGICAL HISTORY Lac R median and ulnar nerves - through glass door: SX [facility] 2003 - surgery x 3 -'00, ', 02 ARM SURGERY Right Medical History Medical History Date Comments Hx Other Medical 1994 7-4 product nor mal Hx Other Medical 1999 Lac R median an d ulnar nerves - through glass door Family History Medical History Relation Name Comments Asthma Other 1 Family history of Asthma; Leukemia Other 2 Family history of Leukemia; Thyroid disease Other 3 Family histo ry of Thyroid disease; Allergies Other 4 Family history of Allergies; Migraines Other 5 Family history of Migraines; Stroke Other 6 Family history of Stroke; Hypertension Other 7 Family history of Hypertension; RED 09/23/2014 -MGF Diabetes Other 8 Family history of Diabetes mellitus; RED 09/23/2014 -MGM, PGM Relation Name Status Comments Other 1 Other 2 Other 3 Other 4 Other 5 Other 6 Other 7 Other 8 Social History Tobacco Use Types Packs/Day Years Used Date Smoking Tobacco: Never Smokeless Tobacco: Never Tobacco Cessation:Counseling Given: Yes Alcohol Use Standard Drinks/Week Comments No 0 (1 standard drink = 0.6 oz pur e alcohol) Comments No Sex and Gender Information Value Date Recorded Sex Assigned at Not on file Legal Sex Female 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 Gender Identity Not on file Sexual Orientation Not on file 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 Not on file Not on file Not on file Obstetrics History Para Term AB IAB SAB Ectopic Multiple Livin g Live Births 0 0 0 0 0 0 0 0 0 0 0 Last Filed Vital Signs Vital Sign Reading Time Taken Comments Blood Pressure 132/80 02/15/2019 10:43 AM CDT Pulse 133 12/21/2017 1:24 PM CDT Temperature 37.1 C (98.8 F) 12/21/2017 1:24 PM CDT Respiratory Rate 16 12/21/2017 1:24 PM CDT Oxygen Saturation 99% 12/21/2017 1:24 PM CDT Inhaled Oxygen Concentration - - Weight 57.2 kg (126 lb) 02/15/2019 10:43 AM CDT Height 152.4 cm (5') 02/15/2019 10:43 AM CDT Body Mass Index 24.61 02/15/2019 10:43 AM CDT Plan of Treatment Not on file Insurance AETNA SIG [id number] CIGNA PENDING SALE TO [facility] AET SIG [id number] Care Teams Charge Master Analyst Relationship Specialty Start Date End Date Linda Olson PA 2 [facility] [address] [address] PCP - General Rail Car Driver 01/01/23
[2025-05-10 17:14] VITALS: BP 130/75; PULSE 108; RESP 16; TEMP 36.9; O2SAT 100
--- OUTSIDE RECORDS SUMMARY | 2025-05-10 19:44 | XMS_ITS | Clinical Summary ---
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
--- OUTSIDE RECORDS SUMMARY | 2025-05-10 19:44 | XMS_ITS | Clinical Summary ---
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
--- NOTE | 2025-05-10 20:19 | ED.GENADULT ---
HPI - General Adult General Chief complaint: Wound/Laceration Stated complaint: infected wound, on oral abx, 12 weeks Time Seen by Provider: 05/10/25 19:30 Source: patient Mode of arrival: ambulatory Limitations: no limitations History of Present Illness HPI narrative: 30 years old white female stepped on a piece of glass 4 weeks ago, socks on, patient was able to manage the laceration at home with almost complete recovery and improvement. One week ago started having pain and purulent discharge, went to urgent care started on Keflex 3 days ago. Patient 17 weeks Related Data Home Medications ?Medication ?Instructions ?Recorded ?Confirmed ?Last Taken ?Type docosahexaenoic acid 200 mg mg PO 04/27/25 04/27/25 Unknown History capsule ( DHA) Allergies Allergy/AdvReac Type Severity Reaction Status Date / Time No Known Allergies Allergy Verified 05/10/25 17:16 Review of Systems Review of Systems: All systems reviewed & are unremarkable except as noted in HPI and below PMFSH Past Medical History Medical History Depression Anxiety Scoliosis Family History Family History Grandparent Diabetes mellitus Bladder cancer Sibling Scoliosis Bipolar 2 disorder Hypothyroidism Mother Mental disorder Father High cholesterol Social History Social History Smoking status: Never smoker Substance use: never Lack of Transportation: No Lack of Food: Never True Current Housing: I Have Housing Concerned About Future Housing: No Difficulty Paying Gas/Electric Bills: No Difficulty Paying for Meds: No Currently Unemployed: No Education: Decline to Answer Difficulty w/ Childcare or Family Care: No Spiritual care concerns: No Exam Narrative: General appearance: Well-developed, well-nourished Skin: Normal color Vascular: Normal peripheral pulses, normal capillary refill. Musculoskeletal: Left foot exam showed 0.5 cm non healed laceration at the bottom of the foot, no discharge, slightly tender to touch, no subcutaneous induration or lump or fluctuation or erythematous changes Neurologic: Alert and oriented ?3, ADVANCED REGISTERED NURSE is normal as tested, no gross motor deficit Course Vital Signs Vital signs: Vital Signs Temperature 36.9 C 05/10/25 17:14 Pulse Rate 108 H 05/10/25 17:14 Respiratory Rate 16 05/10/25 17:14 Blood Pressure 130/75 05/10/25 17:14 Pulse Oximetry 100 05/10/25 17:14 Oxygen Delivery Room Air 05/10/25 17:14 Temperature 36.9 C 05/10/25 17:14 Pulse Rate 108 H 05/10/25 17:14 Respiratory Rate 16 05/10/25 17:14 Blood Pressure 130/75 05/10/25 17:14 Pulse Oximetry 100 05/10/25 17:14 Oxygen Delivery Room Air 05/10/25 17:14 MDM MDM Narrative Medical decision making narrative: Differential diagnosis retaining foreign body at the left foot which causing the complication lately including infection and purulent discharge. X-ray of the left foot today showed no foreign body. My recommendation to continue Keflex and follow-up with plumbing mechanic for further evaluation for possible retaining non radi opaque foreign body Differential Diagnosis Differential Diagnosis: Retaining foreign body, infection Imaging Data Radiologist's impression: ITS Impressions Foot X-Ray 05/10/25 20:38 IMPRESSION: 1: NO ACUTE BONE OR JOINT ABNORMALITY IDENTIFIED. Critical Care Time Critical Care Time Critical Care Time: No Discharge Plan Discharge Clinical Impression: Wound infection Patient Disposition: Home Condition: Stable Instructions: Wound Infection (DC) Additional Instructions: Return if symptoms are worsening , call plumbing mechanic for appointment, take Tylenol as as needed for aches and pain, continue home medications., keep foot elevated Patient Language: Tongan Prescriptions: No Action DHA 200 mg capsule PO fluconazole 150 mg tablet 150 mg PO ONCE Qty: 1 0RF Rx Instructions: as a single dose Follow-up/Referrals: lBayne Garcia Jr., DPM [Physician, Podiatry] - 05/11/25 Whitney,LATONYA Rosales [Primary Care Provider, Unknown]
[2025-05-10 21:23] VITALS: BP 126/79; PULSE 93; RESP 18; TEMP 37; O2SAT 99
[2025-05-10 21:25] VITALS: BP 126/79; PULSE 93; RESP 18; TEMP 37; O2SAT 99
== END 2025-05-10 21:28 | disposition home or self-care (01) ==
PROVIDERS: Emergency Provider Emergency Medicine; PCP Physician Assistant
DX: O9A.212 Injury, poisoning and certain other consequences of external causes complicating pregnancy, second trimester (principal); S91.312A Laceration without foreign body, left foot, initial encounter; O99.712 Diseases of the skin and subcutaneous tissue complicating pregnancy, second trimester; L08.9 Local infection of the skin and subcutaneous tissue, unspecified; Z3A.17 17 weeks gestation of pregnancy; W25.XXXA Contact with sharp glass, initial encounter
CPT/HCPCS: 73630; 99283

== ENCOUNTER 2025-05-15 15:05 | Emergency (ER) | payer OTHER, SELFPAY ==
[2025-05-15 15:24] VITALS: BP 134/73; PULSE 103; RESP 16; TEMP 37.1; O2SAT 100
--- NOTE | 2025-05-15 15:28 | ED.WOUNDLAC ---
HPI - Wound/Laceration General Chief Complaint: Wound/Laceration Stated Complaint: left foot inf Time Seen by Provider: 05/15/25 15:30 Source: patient Mode of arrival: ambulatory Limitations: no limitations History of Present Illness HPI narrative: Jessica is a 30-year-old female patient presenting to the clinic today with complaints of a left plantar foot infection. She reports that she stepped on some hot glass approximately 1 month ago. Was seen in the ER on May 10 for a possible infection and they started her on some Keflex because she is . States she is 13 weeks tomorrow. States that the redness and swelling seems to be getting worse to the left plantar foot over the past few days. Has had some yellowish discharge coming from the wound. She denies any current fevers, chills, body aches but did have low-grade fever when she was seen in the emergency room. Related Data Home Medications ?Medication ?Instructions ?Recorded ?Confirmed ?Last Taken ?Type docosahexaenoic acid 200 mg mg PO 04/27/25 04/27/25 Unknown History capsule ( DHA) Allergies Allergy/AdvReac Type Severity Reaction Status Date / Time No Known Allergies Allergy Verified 05/15/25 15:42 Review of Systems Review of Systems: Pertinent positives per HPI. Patient denies any fever, chills, rash, headache, visual changes, dizziness, cough, shortness of breath, chest pain, palpitations, nausea, vomiting, diarrhea, constipation, abdominal pain, or any urinary issues. PMFSH Past Medical History Medical History Depression Anxiety Scoliosis Family History Family History Grandparent Diabetes mellitus Bladder cancer Sibling Scoliosis Bipolar 2 disorder Hypothyroidism Mother Mental disorder Father High cholesterol Social History Social History Smoking status: Never smoker Substance use: never Lack of Transportation: No Lack of Food: Never True Current Housing: I Have Housing Concerned About Future Housing: No Difficulty Paying Gas/Electric Bills: No Difficulty Paying for Meds: No Currently Unemployed: No Education: Decline to Answer Difficulty w/ Childcare or Family Care: No Spiritual care concerns: No Comments At the time of my signature, I reviewed and agree with the nursing past medical, surgical, social, and family history. There is no relevant family history pertinent to the patient complaint. Exam Narrative: General: Well-developed, well nourished, in no apparent distress Head: Normocephalic, atraumatic. Cardio: Regular rate and rhythm, s1 and s2 normal, no murmur appreciated. Resp: Clear to auscultation bilaterally, no rhonchi, rales, wheezing or rubs. Integumentary: [place], warm, and dry, wound infection to the left plantar foot/midfoot with redness, swelling, and tenderness, no palpable abscess, no current drainage-was not able to express any drainage. Course Course Level of Care: Express Care Visit Vital Signs Vital signs: Vital Signs Temperature 37.1 C 05/15/25 15:24 Pulse Rate 103 H 05/15/25 15:24 Respiratory Rate 16 05/15/25 15:24 Blood Pressure 134/73 05/15/25 15:24 Pulse Oximetry 100 05/15/25 15:24 Temperature 37.1 C 05/15/25 15:24 Pulse Rate 103 H 05/15/25 15:24 Respiratory Rate 16 05/15/25 15:24 Blood Pressure 134/73 05/15/25 15:24 Pulse Oximetry 100 05/15/25 15:24 [facility] MDM Narrative Medical decision making narrative: At the time of visit patient is resting comfortably on the exam table. Patient appears to be nontoxic. complaints of a left plantar foot infection. She reports that she stepped on some hot glass approximately 1 month ago. Was seen in the ER on May 10 for a possible infection and they started her on some Keflex because she is . States she is 13 weeks tomorrow. States that the redness and swelling seems to be getting worse to the left plantar foot over the past few days. Has had some yellowish discharge coming from the wound. She denies any current fevers, chills, body aches but did have low-grade fever when she was seen in the emergency room. On exam patient has wound infection to the left plantar foot/midfoot with redness, swelling, and tenderness, no palpable abscess, no current drainage-was not able to express any drainage. Plan: I suspect patient has is wound infection to the left foot. She is taking Keflex and the redness and swelling is getting worse. Will have her stop the Keflex and place her on clindamycin and mupirocin was sent to the pharmacy. Supportive measures were discussed with the patient and they voiced understanding discharge instructions and agrees to treatment plan. Return precautions reviewed Differential Diagnosis Differential Diagnosis: Differential diagnostic considerations for skin/abscess/foreign body issues include abscess of skin or subcutaneous tissue, viral exanthem, dermatophytosis, urticaria, herpes zoster, allergic reaction to drug, cellulitis, eczema, insect bites, impetigo, contact dermatitis, vasculitis. Discharge Plan Discharge Clinical Impression: Puncture wound of foot excluding toes with infection Qualifiers: Encounter type: initial encounter Laterality: left Qualified Code(s): S91.332A - Puncture wound without foreign body, left foot, initial encounter Patient Disposition: Home Condition: Stable Instructions: Antibiotic Form, Wound Infection (ED), Puncture Wound in the Foot (ED) Additional Instructions: Take clindamycin as prescribed Keep wound clean and dry Apply mupirocin cream to the affected area twice daily as prescribed May take Tylenol as needed for pain or fever Increase fluids and stay well hydrated Follow-up with your OBGYN/PCP in 3 days for a wound check Patient Language: Malay Prescriptions: New mupirocin [Centany] 2 % ointment 1 applic topical BID 7 Days Qty: 22 0RF clindamycin HCl [Cleocin HCl] 300 mg capsule 300 mg PO Q8H 7 Days Qty: 21 0RF No Action DHA 200 mg capsule PO fluconazole 150 mg tablet 150 mg PO ONCE Qty: 1 0RF Rx Instructions: as a single dose Follow-up/Referrals: Whitney,LATONYA Rosales [Primary Care Provider, Unknown] Time of Disposition: 15:41 Quality NIHSS Nursing Documentation ED NIHSS nursing documentation: reviewed/agree
== END 2025-05-15 15:45 | disposition home or self-care (01) ==
PROVIDERS: Emergency Provider Nurse Practitioner Family; PCP Physician Assistant
DX: O9A.211 Injury, poisoning and certain other consequences of external causes complicating pregnancy, first trimester (principal); S91.332A Puncture wound without foreign body, left foot, initial encounter; L08.9 Local infection of the skin and subcutaneous tissue, unspecified; W25.XXXA Contact with sharp glass, initial encounter; Z3A.12 12 weeks gestation of pregnancy
CPT/HCPCS: 99213; G0463

== ENCOUNTER 2025-05-16 13:44 | Outpatient (CLI) | payer OTHER, SELFPAY ==
--- NOTE | ~2025-05-16 | US_ITS ---
EXAMINATION: US OB <= 14 weeks fetus DATE: 05/16/2025 14:22 INDICATION: Of first trimester with inconclusive viability TECHNIQUE: Real-time pelvic ultrasound utilizing both a transvaginal and transabdominal probe was performed. The interpreting radiologist was not present for the study. COMPARISON: None. FINDINGS: The uterus measures 13.7 x 8.2 x 8.7 cm. There is an intrauterine gestational sac. A yolk sac and pole are identified. The crown rump length measures 5.9 cm, which correlates with an estimated gestational age of 12 weeks and 3 days. heart motion is identified measuring 176 beats per minute (bpm) by M-mode Doppler. There is a 3.9 x 2.1 x 1.1 cm hypoechoic subchorionic hematoma along the cephalad margin of the gestational sac. The right ovary measures 2.8 x 1.8 x 1.0 cm. The left ovary measures 2.9 x 2.7 x 1.3 cm. There is no free fluid in the pelvis. IMPRESSION: 1. Single living fetus with heart rate of 176 bpm. 2. Gestational age by ultrasound of 12 weeks 3 day(s) +/- 1 week and 1 day with ultrasound estimated date of delivery (LUCAS) of 11/25/2025. 3. 3.9 x 2.1 x 1.1 cm subchorionic hematoma. Reviewed, dictated and finalized at location A. NEERING MATHEMATICIAN IMPRESSION: 1. Single living fetus with heart rate of 176 bpm. 2. Gestational age by ultrasound of 12 weeks 3 day(s) +/- 1 week and 1 day wit h ultrasound estimated date of delivery (LUCAS) of 11/25/2025. 3. 3.9 x 2.1 x 1.1 cm subchorionic hematoma.
== END 2025-05-16 13:45 | disposition home or self-care (01) ==
LOC: MICIMG 13:45
PROVIDERS: PCP Physician Assistant; Visit Provider Obstetrics & Gynecology
DX: O36.80X0 Pregnancy with inconclusive fetal viability, not applicable or unspecified (principal); Z3A.00 Weeks of gestation of pregnancy not specified; Z3A.12 12 weeks gestation of pregnancy
CPT/HCPCS: 76801